=== PATIENT | male | born 1990 | race Caucasian/White ===

== ENCOUNTER → 2018-01-10 | Outpatient (CLI) | payer OTHER ==
--- NOTE | 2018-01-10 12:42 | CONS ---
CONSULTATION DATE OF SERVICE: 01/10/2018 This is a 27-year-old gentleman who has been evaluated in the sleep center for possible obstructive sleep apnea-hypopnea syndrome and for extremely long period of sleep for up to 20 hours. HISTORY OF PRESENT ILLNESS/SLEEP WAKE EVALUATION: Patient's sleep schedule is not regular. He may go to bed at 8 or 9 p.m. or at 6 a.m. in the morning and sometimes he sleeps up to 20 hours and then he could wake up to 20 hours and then sleep or he just awake for 2 or 3 hours and then could sleep again up to 20 hours. If he is trying to take naps, he put alarm, but he cannot wake up with alarm. He is sleeping through. The patient has witnessed episodes of stopped breathing during the sleep. He has episodes of nocturia after 8 hours of sleep. The patient wakes up with dry mouth, sweating, episodes of panic attack, heartburn. After sleep, he wakes up tired. May fall asleep again. Worry about his sleep, he has problem with memory, irritability, depression and anxiety. [place] Sleepiness Scale significantly increased to 14. Patient does not remember any dreams. PAST MEDICAL HISTORY: Anxiety, depression. 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 MEDICATIONS: Prozac 20 mg once a day. SOCIAL HISTORY: Negative for smoking or using alcohol. REVIEW OF SYSTEMS: Sleepiness, witnessed episodes of stopped breathing. FAMILY HISTORY: Hyperlipidemia, fibromyalgia, arthritis, cancer, thyroid problem, acid reflux. PHYSICAL EXAM: During physical exam, a gentleman without distress. VITAL SIGNS: BP 102/72, HR 74, RR 16, height 5 feet 4 inches, weight 159, BMI 27. Neck 14-1/2 inches in circumference. Temperature 97.7, oxygen saturation at room air 97%. HEENT: PERRLA, EOMI. Oropharynx small oropharyngeal airspace moderately low position of soft palate. Restriction of nasal breathing. Some high pitched changes of the voice. NECK: Supple, no JVD. Thyroid is not palpable. LUNGS: Clear to percussion and to auscultation. Good air exchange. No wheezing or rhonchi. HEART: S1, S2 regular. No murmurs, gallops, or rubs. ABDOMEN: Soft and nontender. Bowel sounds are present. No organomegaly appreciated. EXTREMITIES: No clubbing or cyanosis. SUPERVISOR ENGINE REPAIR: Awake, alert, and oriented X3. Cranial nerves 2 to 7 intact. There is no fasciculation or atrophy. noted. No focal deficits observed. IMPRESSION: 1. Small oropharyngeal air space, witnessed episodes of stopped breathing during the sleep, sleepiness, [place] Sleepiness Scale increased to 14. Possible obstructive sleep apnea-hypopnea syndrome. 2. The patient sleeps up to 20 hours. Differential diagnosis should include idiopathic hypersomnia. 3. Status post cleft palate surgery in childhood. 4. Status post mitral valve surgery in 2002. 5. Panic attacks. 6. Anxiety. 7. Depression. 8. Status post spinal fusion surgery in 2002. 9. Status post surgery on left ear for internal ear bones with a goal to improve his hearing on this ear, but without success. 10.Hearing problems. Patient is using hearing aids. PLAN: 1. Polysomnography for evaluation of patient's breathing during sleep. 2. CPAP/BiPAP titration if sleep study confirms obstructive sleep apnea-hypopnea syndrome. 3. Preferable position during sleep on the side. 4. No driving if patient feels any sleepiness. 5. I will see patient for follow up visit to explain results of testing and following plan. 6. Multiple sleep latency test for objective evaluation in patient's sleepiness if sleep study will be negative for any physical abnormalities or sleep. Thank you very much for allowing me to participate in management of your patient. Sincerely, Thony Rodrigez MD, PhD, FAASM Diplomat of [employer] [place] [employer] Preparator of [facility] [place] MMODL / [id number]: [id number] /
== END | disposition home or self-care (01) ==
LOC: SLEEP 10:47 → EEVIPCON 11:00
PROVIDERS: ATTEND Internal Medicine
DX: J39.2 Other diseases of pharynx (principal); G47.30 Sleep apnea, unspecified; F41.0 Panic disorder [episodic paroxysmal anxiety]; F32.9 Major depressive disorder, single episode, unspecified; F41.9 Anxiety disorder, unspecified; H91.90 Unspecified hearing loss, unspecified ear; Z97.4 Presence of external hearing-aid; Z87.730 Personal history of (corrected) cleft lip and palate; Z98.1 Arthrodesis status; Z98.890 Other specified postprocedural states; Z79.891 Long term (current) use of opiate analgesic
CPT/HCPCS: 99211